=== PATIENT | female | born 1950 | race Caucasian/White ===

== ENCOUNTER 2025-10-12 15:57 | Emergency (ER) | payer MEDICARE, OTHER, SELFPAY ==
--- NOTE | ~2025-10-12 | CT_ITS ---
CLINICAL HISTORY: Nonfocal AMS CT Head Without Contrast: Comparison: None Findings: Cortical sulci are prominent. Small 2-3 mm remote lacunar infarcts are present involving the bilateral caudate nuclei and bilateral internal capsule No shift in midline structures No intraparenchymal bleeding or abnormal extra axial blood fluid collections Normal pituitary size Clear paranasal sinuses Unremarkable orbital structures No depressed fractures Impression: Bilateral basal ganglia small remote lacunar infarcts, no signs abnormalities. This document has been electronically signed by: Keny Rubio MD on 10/12/2025 17:39:19
[2025-10-12 16:12] VITALS: BP 140/80; BP 172/104; PULSE 70; PULSE 85; RESP 16; TEMP 36.6; O2SAT 95; BMI 24.0
--- NOTE | 2025-10-12 16:29 | ED_ITS ---
HPI - General Adult General Chief complaint: General Medical Stated complaint: Increased confusion Time Seen by Provider: 10/12/25 16:07 History of Present Illness ED Provider: parth HPI narrative: [age] female who had a adult protective Services calm possibly at the behest of a neighbor who was concerned about the patient. Apparently she lives alone she had to me appears demented and does not contribute at all to the history. She perseverates and continues to ask for ?where's my boyfriend?. She is not responsive to other medical questions. Related Data Home Medications ?Medication ?Instructions ?Recorded ?Confirmed No Known Home Meds 10/13/25 10/13/25 Allergies Allergy/AdvReac Type Severity Reaction Status Date / Time No Known Allergies Allergy Verified 10/12/25 16:16 PMF Social History Social History Smoked in Last 30 Days: No Use of substances other than those prescribed or required for medical reasons: No Advance Directives: No Advance Directives Information Provided: Yes Physical Exam ED Exam Exam: EXAM: Gen: Alert, awake, well appearing, well hydrated. Pleasantly demented Head: Atraumatic Eyes: Anicteric, Normal conjunctiva. ENT: Moist mucosa, no pallor. ? Neck: Supple. Skin: ?No observable rash or bruising on exposed or examined skin Respiratory: Breathing comfortably, No distress.Clear to auscultation bilaterally, symmetric chest expansion, No wheeze, rales, ronchi. Cardiovascular: Regular rate and rhythm. No murmurs or rub. Well perfused periphery, warm extremities. No edema. ? Abdominal: No focal tenderness. Soft, no objective distension. No palpable masses or obvious organomegaly. ?No guarding, no rebound tenderness or other peritoneal findings. : No flank tenderness. Neuro: Alert. Gross movement of all extremities intact. ? Psych: Calm. Cooperative. Demented. Perseverating on her boyfriend MSK: No grossly visible deformity. Vital signs: See flowsheet Vital Signs: Vital Signs - 24 hr 10/13/25 16:19 10/14/25 06:00 Temperature 98.5 F 97.8 F Pulse Rate 80 78 Respiratory Rate 16 Blood Pressure 174/91 H 135/73 Pulse Oximetry 98 96 Oxygen Delivery Method Room Air Room Air BMI result Body Mass Index 24.0 Course Reevaluation(s) Reevaluation #1: Time: 06:24 Date: 10/13/25 Provider: Dean Cohen MD Patient in physician observation for psychiatric evaluation.? No acute events reported overnight. No current complaints. VS stable.? Patient is in bed search status/pending CARE team evaluation. Will continue to monitor. Reevaluation #2: Time: 06:01 Date: 10/14/25 Provider: Dean Cohen MD Patient in physician observation for psychiatric evaluation.? No acute events reported overnight. No current complaints. VS stable.? Patient is in bed search status/pending CARE team evaluation. Will continue to monitor. Reevaluation #3: Patient was seen by psychiatric correctional case records supervisor, patient was cleared for discharge correctional case records supervisor arranged appropriate follow-up and safety of the pain. At this time we will discontinue the ED obs 10/14/2025 1105 () Time: 11:04 Medical Decision Making Medical Decision Making MDM Narrative: Medical Decision Making: [age] female possibly with dementia neighbor concerned about her safety at home alone. There was no signs of injury or acute medical emergency. CT shows remote lacunar infarcts unlikely related to the patient's current presentation at this time. There was no focal deficits. There was no fever or hemodynamic instability. Preliminary Favored Differential Diagnosis: [ ] among additional considered etiologies Testing Interpreted Independently: ?See below for details Radiology or Lab testing Results Reviewed: ?See below for details Consults: ?See below for details Independent Historians/External Chart Reviews: ?See below for details Social Determinants of Health Impacting MDM/Planning: ?See below for details Lab Data 10/12/25 16:34 10/12/25 16:34 Labs: Lab Results 10/12/25 10/14/25 Range/Units 16:34 06:32 WBC 10.7 (4.8-10.8) X10*3/uL RBC 5.33 (4.20-5.50) X10*6/uL Hgb 14.8 (12.0-16.0) g/dl Hct 44.5 (37.0-47.0) % MCV 83.5 (80.0-98.0) fL MCH 27.8 (27.0-33.0) pg MCHC 33.3 (31.0-35.0) g/dl RDW 14.8 (11.0-16.0) % Plt Count 261 (160-400) X10*3/uL MPV 8.4 L (9.4-12.3) fL Immature Gran % (Auto) 0.2 (0.0-0.4) % Neut % (Auto) 74.2 H (45-73) % Lymph % (Auto) 17.5 L (20-40) % [place] % (Auto) 6.7 (2-11) % Eos % (Auto) 0.7 (0-4) % Baso % (Auto) 0.7 (0-2) % Lymph # (Auto) 1.9 (1.2-4.9) X10*3/uL [place] # (Auto) 0.7 (0.1-1.2) X10*3/uL Eos # (Auto) 0.1 (0.0-0.4) X10*3/uL Baso # (Auto) 0.1 (0.0-0.2) X10*3/uL Abs Immat Gran (auto) 0.02 (0.00-0.03) X10*3/uL Absolute Neuts (auto) 7.9 (2.0-8.3) x10*3/uL Absolute Nucleated RBC 0.000 (0.0-0.012) X10*3/uL Nucleated RBC % (auto) 0.0 (0.0-0.2) /100WBC Sodium 142 (135-145) mmol/L Potassium 3.3 (3.3-5.1) mmol/L Chloride 102 (96-108) mmol/L Carbon Dioxide 28 (22-29) mmol/L Anion Gap 15 (12-20) BUN 20 H (9-16) mg/dL Creatinine 1.07 (0.5-1.4) mg/dL Estim Creat Clear Calc 40.4 Estimated GFR 50 Random Glucose 94 (60-115) mg/dL Calcium 9.7 (8.4-10.2) mg/dL Magnesium 1.7 (1.6-2.6) mg/dL Total Bilirubin 0.5 (0.0-1.0) mg/dL AST 30 (5-31) U/L ALT 15 (0-31) U/L Alkaline Phosphatase 81 (39-117) U/L Total Protein 7.3 (6.5-8.0) g/dL Albumin 4.5 (3.5-5.0) g/dL TSH 1.14 (0.32-4.0) uIU/mL Urine Color Dark Yellow Urine Appearance Clear Urine pH 5.0 (5.0-9.0) Ur Specific [place] 1.025 (1.005-1.025) Urine Protein 30 (1+) H (Neg-Trace) mg/dL Urine Glucose (UA) Negative (Negative) mg/dL Urine Ketones 15 (Negative) mg/dL Urine Blood Negative (Negative) Urine Nitrite Negative (Negative) Ur Leukocyte Esterase Negative (Negative) Urine RBC 0-2 (0-2) /HPF Urine WBC 0-5 (0-5) /HPF Ur Squamous Epith Cells 3-5 (0-2) /HPF Urine Bacteria Trace (None Seen) Hyaline Casts 3-5 (0-2) /LPF Urine Opiates Screen Not Detected (Not Detect) Ur Buprenorphine Scrn Not Detected (Not Detect) ng/mL Ur Oxycodone Screen Not Detected (Not Detect) ng/mL Urine Methadone Screen Not Detected (Not Detect) ng/mL Urine Fentanyl Screen Not Detected (Not Detect) Ur Barbiturates Screen Not Detected (Not Detect) Ur Phencyclidine Scrn Not Detected (Not Detect) Ur Amphetamines Screen Not Detected (Not Detect) U Benzodiazepines Scrn Not Detected (Not Detect) Urine Cocaine Screen Not Detected (Not Detect) U Marijuana (THC) Screen Not Detected (Not Detect) Ethyl Alcohol < 10 mg/dL Discharge Plan Discharge Clinical Impression: Major neurocognitive disorder Patient Disposition: Home, Self-Care Additional Instructions: Follow-up with your primary care physician return to the emergency room if worse Prescriptions: No Action No Known Home Meds Print Language: Bulgarian
[2025-10-12 16:46] LABS: MANUAL DIFF FLAG NO
[2025-10-12 16:49] LABS: Hematocrit 44.5 % (37.0-47.0); Hemoglobin 14.8 g/dl (12.0-16.0); Imm Gran Abs Auto 0.02 X10*3/uL (0.00-0.03); Imm Gran Pct Auto 0.2 % (0.0-0.4); Lymphocytes Absolute Auto 1.9 X10*3/uL (1.2-4.9); Mean Corpuscular HGB Conc 33.3 g/dl (31.0-35.0); Mean Corpuscular Hemoglobin 27.8 pg (27.0-33.0); Mean Corpuscular Volume 83.5 fL (80.0-98.0); NRBC Abs Auto 0.000 X10*3/uL (0.0-0.012); NRBC Pct Auto 0.0 /100WBC (0.0-0.2); Platelet Count 261 X10*3/uL (160-400); Red Blood Count 5.33 X10*6/uL (4.20-5.50); White Blood Count 10.7 X10*3/uL (4.8-10.8)
[2025-10-12 17:16] LABS: Alanine Aminotransferase 15 U/L (0-31); Albumin Level 4.5 g/dL (3.5-5.0); Alkaline Phosphatase 81 U/L (39-117); Anion Gap 15 (12-20); Aspartate Amino Transferase 30 U/L (5-31); Blood Urea Nitrogen 20 mg/dL (9-16); Calcium 9.7 mg/dL (8.4-10.2); Carbon Dioxide 28 mmol/L (22-29); Chloride 102 mmol/L (96-108); Creatinine Clr Calc Pharmacy 40.4; Estimated Glomerular Filt Rate 50; Magnesium 1.7 mg/dL (1.6-2.6); Potassium 3.3 mmol/L (3.3-5.1); Sodium 142 mmol/L (135-145); Total Protein 7.3 g/dL (6.5-8.0)
--- NOTE | 2025-10-12 17:17 | PC.NURSE ---
Pt presents to ED via EMS from home, per EMS, elder services called for pt to be transported due to multiple reports filled. Limited info, pt is very poor historian and EMS had limited story. Pt lives alone but has home health aids come to help her. A neighbor on scene reported he is worried about her and taking care of herself. Pt is alert and oriented to person only, very confused, denying any physical complaints. No SOB, CP, pain, N/V/D. Breathing even and unlabored. No signs of trauma or distress. Pt unsure why she is here, wants to leave. Pt changed over and elopement band placed. Pt got up multiple times and tried to leave room. meters superintendent aware and 1:1 sitter now with pt. Pt keeps talking about her boyfriend , per EMS pt refers to the neighbor as her boyfriend.
[2025-10-12 17:28] LABS: Thyroid Stimulating Hormone 1.14 uIU/mL (0.32-4.0)
[2025-10-12 17:37] VITALS: BP 151/84; PULSE 71; RESP 16; O2SAT 96
--- OUTSIDE RECORDS SUMMARY | 2025-10-12 19:07 | XMS_ITS | Encounter Summary ---
Author Organization [facility] Address [address] [place] [address] [place] [phone] Phone Care Team Providers Care Assembler Truck Trailer Name Role Phone Huang Tsai DO Primary Care Provider [phone] Encounter Details Date Type Department Care Team (Late st Contact Info) Description 10/22/2024 Procedure Pass [facility], Ct Scan - [facility] [address] [place] [address] Social History Tobacco Use Types Packs/Day Years Used Date Smoking Tobacco: Never Smokeless Tobacco: Never Alcohol Use Standard Drinks/Week Comments Yes 0 (1 standard drink = 0.6 oz pur e alcohol) 1 per month Education Answer Date Recorded Are you interested in more education? Not on ananth e 03/07/2023 Are you concerned about learning? Not on file 03/07/2023 No 03/07/2023 No 03/07/2023 Digital Access Answer Date Recorded No 04/05/2023 No 04/05/2023 Reliable internet access at home? Not on file 04/05/2023 Device with a working camera? Not on file Comments Unknown Sex and Gender Information Value Date Recorded Sex Assigned at Female 10/22/2024 9:38 AM EST Legal Sex Female 10:00 PM EDT Gender Identity Female 10/22/2024 9:38 AM EST Sexual Orientation Straight 01/23/2025 2: 41 PM EDT documented as of this encounter Functional Status * Calculated C-SSRS Risk Score (Lifetime/Recent) Answer Date of Assessment Author No Risk Indicated 10/22/2024 9:38 AM EST Isabella Vick, GEOVANNI * Amelia Suicide Severity Rating Scale (Screener/Recent Self-Report) Question Answer Date of Assessment Author 1. Wish to be (Past 1 Month) No 024 9:38 AM Isabella Simmons, GEOVANNI 2. Non-Specific Active Suici bladimir Thoughts (Past 1 Month) No 10/22/2024 9:38 AM Isabella Simmons , GEOVANNI 6. Suicidal Behavior (Lifetime) No 9:38 AM Isabella Simmons, GEOVANNI documented as of this encounter Plan of Treatment Upcoming Encounters Date Type Department Care Team (Late st Contact Info) Description 11/07/2025 11:00 AM EST Office Visit [facility] [address] [place] [address] Huang Tsai, DO [address] [place] [address] [email or web address] 12/14/2025 1:30 PM EST Social Work [facility] [address] [place] [address] Carlton Smith, ASP NET DEVELOPER [address], [address] 2026 3:00 PM EDT Office Visit [facility] Geriatrics [address] [place] [address] Stephon Baig, [address] [place] [address] 03/24/2026 1:30 PM EDT Office Visit [facility] [address] [place] [address] Chetan Min MD [address] [place] [address], [address] [place] [address] documented as of this encounter Visit Diagnoses Not on filedocumented in this encounter Care Teams Assembler Truck Trailer Relationship Specialty Start Date End Date Huang Tsai DO [address] [place] [address] [email or web address] PCP - General 04/14/18 documented as of this encounter Additional Source Comments The information contained in this document represents components of the legal health record. It is not the complete legal health record.[facility]
--- OUTSIDE RECORDS SUMMARY | 2025-10-12 19:07 | XMS_ITS | Encounter Summary ---
Author Organization [facility] Address [address] [place] [phone] Phone Care Team Providers Care Information Security Engineer Name Role Phone Huang Tsai DO Primary Care Provider Encounter Details Date Type Department Care Team (Late st Contact Info) Description 04/14/2018 Procedure Pass [facility] Admitting Dept Virtual Department [address] [place] [address] Social History Tobacco Use Types Packs/Day Years Used Date Smoking Tobacco: Never Smokeless Tobacco: Never Alcohol Use Standard Drinks/Week Comments Yes 0 (1 standard drink = 0.6 oz pur e alcohol) 1 per month Comments Unknown Sex and Gender Information Value Date Recorded Sex Assigned at Female 10/22/2024 9:38 AM EST Legal Sex Female 10:00 PM EDT Gender Identity Female 10/22/2024 9:38 AM EST Sexual Orientation Straight 01/23/2025 2: 41 PM EDT documented as of this encounter Plan of Treatment Upcoming Encounters Date Type Department Care Team (Late st Contact Info) Description 11/07/2025 11:00 AM EST Office Visit [facility] [address] [place] [address] Huang Tsai DO [address] [place] [address] [email or web address] 12/14/2025 1:30 PM EST Social Work [facility] [address] [place] [id number] Carlton Smith, HEALTH SAFETY COORDINATOR [address] [facility]. [address] [place], [address] 2026 3:00 PM EDT Office Visit [facility] [address] [place] [address] Stephon Baig DO [address] [place] [address] 03/24/2026 1:30 PM EDT Office Visit [facility] [address] [place] [address] Chetan Min MD [address] [facility] [address] [place] [address] documented as of this encounter Visit Diagnoses Not on filedocumented in this encounter Care Teams Information Security Engineer Relationship Specialty Start Date End Date Huang Tsai DO [address] [place] [address] PCP - General 04/14/18 documented as of this encounter Additional Source Comments The information contained in this document represents components of the legal health record. It is not the complete legal health record.[facility]
--- OUTSIDE RECORDS SUMMARY | 2025-10-12 19:07 | XMS_ITS | Clinical Summary ---
Author Organization [facility] Address [address] [place] [address] [place] [phone] Phone Care Team Providers Care Wooden Furniture Polisher Name Role Phone Martita Tsai DO Primary Care Provider [phone] Allergies Active Allergy Reactions Criticality Noted Date Comments Benzethonium Chloride Other (See Comments) 02/2021 Codeine Nausea and/or Vomiting 04/07/2018 Latex Rash Low 04/07/2018 Morphine Nausea and/or Vomiting 04/07/2018 Other 09/02/2022 Other reaction(s): CAUSES SINUSITIS, SEASONAL Other Reaction(s): CAUSES SINUSITIS, SEASONAL Other reaction(s): AFTER BEING ONFOR AWHILE STUCK TO SKIN DIFFICULT TO GET OFF REDNESS RASH Other Reaction(s): AFTER BEING ONFOR AWHILE STUCK TO SKIN DIFFICULT TO GET OFF REDNESS RASH Medications losartan (COZAAR) 50 MG tabletIndication s:hypertension Take 50 mg by mouth daily. Indications: hypertension Active venlafaxine (EFFEXOR) 37.5 MG tablet Take 37.5 mg by mouth 2 (two) times a day. Active omeprazole (PRILOSEC) 20 MG capsuleIndicatio ns:gastroesophag eal reflux disease Take 20 mg by mouth daily. Indications: gastroesophageal reflux disease Active therapeutic multivitamin tablet Take 1 tablet by mouth daily. Active calcium citrate (CALCITRATE) 950 mg (200 mg elemental) tablet Take 1 tablet by mouth daily. Active cholecalciferol (VITAMIN D3) 25 MCG (1,000 unit) tablet Take 1,000 Units by mouth daily. Active Active Problems Problem Noted Date Diagnosed Date Hypokalemia 09/01/2025 Lower abdominal pain 09/01/2025 Chronic diarrhea 08/30/2025 Sensorineural hearing loss 08/30/2025 Osteoporosis, postmenopausal 08/30/2025 Nontoxic thyroid nodule 08/30/2025 Mild cognitive disorder 08/30/2025 Migraine without aura and responsive to treatmen t 08/30/2025 GERD (gastroesophageal reflux disease) Drug-induced polyneuropathy 08/30/2025 BRCA2 gene mutation positive in female Encounter to establish care with new doctor 08/11 Triple negative breast cancer 08/30/2025 Overview (08/30/2025): Right breast cancer treated at [facility] oncologist Dr. Sánchez Generalized anxiety disorder 01/20/2025 Malignant neoplasm of ovary 11/17/2024 Assessment & Plan (08/30/2025 5:06 PM EDT): Followed by Dr. Sánchez Hyperparathyroidism 11/17/2024 Breast cancer, right 11/17/2024 Chronic kidney disease, stage 3a 08/13/2021 Overview (08/30/2025): Per chart review meets GFR criteria Essential hypertension 08/13/2021 Hyperplastic polyp of large intestine 04/14/2018 Overview (08/30/2025): Dr Garcia Encounters Date Type Department Care Team Description 10/03/2025 11:00 AM EST Office Visit [address] [place] [address] Maritta Tsai DO Chronic diarrhea (Primary Dx); Chronic kidney disease, stage 3a; Hypokalemia; Lower abdominal pain; Lack of social support; Malignant neoplasm of ovary, unspecified laterality; Triple negative breast cancer; Essential hypertension; Hyperparathyroidism; Drug-induced polyneuropathy; Mild cognitive disorder; Generalized anxiety disorder; Nontoxic thyroid nodule; Acquired hypothyroidism 10/03/2025 [address] [place] [address] Maggie Ragsdale LICSW Care Coordination 09/12/2025 Telephone [facility] - ([facility] Primary Care - [address] [address] Shelli Ko LICSW Care Coordination 09/09/2025 Telephone [facility] - ([facility] Primary Care - [address] [address] [place] Shelli Nielsen LICSW Care Coordination 09/07/2025 Telephone [facility] - ([facility] Primary Care - [address] [address] [facility] Shelli Nielsen LICSW 09/02/[address] [place] [address] Rupal Osuna RN Results & Recommendations 09/01/2025 12:27 PM EDT - 09/01/2025 11:59 PM EDT Hospital Encounter [facility] [address] [place] [address] Martita Tsai, DO Discharge Disposition: Home or Self Care 09/01/2025 11:30 AM EDT Office Visit [address] [place] [address] Martita Tsai, Encounter to establish care with new doctor (Primary Dx); Chronic diarrhea; Chronic kidney disease, stage 3a; Malignant neoplasm of ovary, unspecified laterality; Triple negative breast cancer; Hypokalemia; Lower abdominal pain; Lack of social support 08/31/2025 2:35 AM EDT - 08/31/2025 2:36 AM EDT Emergency [facility] [address] [place] [address] Discharge Disposition: Left Without Being Seen 08/30/[address] [place] [address] Martita Tsai, Triage (Red + abdominal pain + diarrhea + 1 year) from Last 3 Months Immunizations Immunization Administration Dates Next Due COVID-19 (Pre-09/01) Moderna Vaccine, mRNA, PF 03/18/2022,10/09/2021,01/27/2021 COVID-19 Pfizer Comirnaty Vaccine 12+ 08/28/2023 COVID-19, Unspecified Formulation 07/29/2022 Hepatitis B, unspecified formulation 05/03/2008, 12/01/2007 INFLUENZA, SPLIT VIRUS, TRIV ALENT W/ PRESERVATIVE IM 08/28/2023 Influenza High-Dose Trivalen t Preservative Free IM 10/03/2025 Pneumococcal conjugate PCV20 05/07/2022 Tdap 05/07/2022 Family History Medical History Relation Comments Diabetes Mother Relation Status Comments Mother Social History Tobacco Use Types Packs/Day Years Used Date Smoking Tobacco: Never Smokeless Tobacco: Never Alcohol Use Standard Drinks/Week Comments Not Currently 0 (1 standard drink = 0.6 oz pur e alcohol) 1 per month Education Answer Date Recorded Are you interested in more education? Not on ananth e 03/07/2023 Are you concerned about learning? Not on file 03/07/2023 No 03/07/2023 No 03/07/2023 Food Answer Date Recorded Within the past 6 months we worried whether our food would run out before we got money to buy more. Never True 08/30/2025 Within the past 6 months the food we bought just didn't last and we didn't have enough money to get more. Never True Residential Stability Answer Date Recor ded What is your housing situation today? I have jackson sing 08/30/2025 How many times have you move d in the past 12 months? Zero (I did not move) 08/30/2025 Paying for Meds Answer Date Recorded Do you have trouble paying for medicines? No 08/30/2025 Paying Utility Bills Answer Date Record ed Do you have trouble paying your heating or elect ricity bill? No 08/30/2025 Transportation Answer Date Recorded Has the lack of transportati on kept you from medical appointments or from getting medications? No 08/30/2025 Digital Access Answer Date Recorded No 08/30/2025 Yes 08/30/2025 Do you have reliable internet access at home? Ye s 08/30/2025 Do you have a device (e.g., phone, tablet, computer) with a working camera? Yes 08/30/2025 Intimate Partner Violence Answer Date R ecorded Are you denied basic needs s uch as food, clothing, or medical care? No 08/30/2025 In the past 12 months have y ou been in a relationship with a person who hurts, threatens, or tries to control you? No 08/30/2025 Are you denied basic needs s uch as food, clothing, or medical care? No 08/30/2025 In the past 12 months have y ou been in a relationship with a person who hurts, threatens, or tries to control you? No 08/30/2025 Comments Unknown Sex and Gender Information Value Date Recorded Sex Assigned at Female 10/22/2024 9:38 AM EST Legal Sex Female 10:00 PM EDT Gender Identity Female 10/22/2024 9:38 AM EST Sexual Orientation Straight 01/23/2025 2: 41 PM EDT Last Filed Vital Signs Vital Sign Reading Time Taken Comments Blood Pressure 128/64 10/03/2025 10:50 AM EST Pulse 87 10/03/2025 10:50 AM EST Temperature 36.2 C (97.1 F) 10/03/2025 10:50 AM EST Respiratory Rate 18 08/30/2025 11:27 PM EDT Oxygen Saturation 97% 10/03/2025 10:50 AM EST Inhaled Oxygen Concentration - - Weight 58.6 kg (129 lb 3.2 oz) 10/03/2025 10:50 AM EST Height 160 cm (5' 2.99 ) 10/03/2025 10:50 AM EST Body Mass Index 22.89 10/03/2025 10:50 AM EST Plan of Treatment Upcoming Encounters Date Type Department Care Team (Late st Contact Info) Description 11/07/2025 11:00 AM EST Office Visit [facility] Family Medicine [address] [place] [address] Martita Tsai DO [address] [place] [address] [email or web address] 12/14/2025 1:30 PM EST Social Work [facility] Behavioral Health [address] [place] [address] Carlton Smith, DIRECTOR GLOBAL INTELLIGENCE 15 [facility]. [address] [place], [address] 2026 3:00 PM EDT Office Visit [facility] Geriatrics [address] [place] [address] Stephon Baig, [address] [place] [address] [email or web address] 03/24/2026 1:30 PM EDT Office Visit [facility] [address] [place] [address] Chetan Min MD [address] [facility], [address] [place] [address] [email or web address] Health Maintenance Due Date Last Done Comments HEPATITIS C SCREENING 01/15/1970 ZOSTER VACCINES (1 of 2) 01/15/1971 MAMMOGRAM 1992 FIT TEST 01/15/1997 FOBT 01/15/1997 SIGMOIDOSCOPY 01/15/1997 VIRTUAL COLONOSCOPY 01/15/1997 OSTEOPOROSIS SCREENING INITIAL (ONE-TIME) 01/15/2017 COVID-19 VACCINE ( season) 2025 08/28/2023, 07/29/2022, 07/29/2022, Additional history exists BLOOD PRESSURE 04/02/2026 10/03/2025 CREATININE LEVEL 09/01/2026 09/01/2025, , 02/17/2025, Additional history exists POTASSIUM LEVEL 09/01/2026 09/01/2025, 1011/2024, 02/17/2025, Additional history exists DEPRESSION SCREENING 10/03/2026 10/03/2025 RSV VACCINE (1 - 1-dose 75+ series) 01/15/2027 COLOGUARD 07/27/2027 07/27/2024 COLORECTAL CANCER SCREENING 07/27/2027 LIPID PANEL 09/13/2027 09/13/2022 COLONOSCOPY 04/14/2028 04/14/2018 Adult Td,Tdap Booster 05/07/2032 05/07/2022 PNEUMOCOCCAL VACCINES (50+ years) Completed 05/07/2022 INFLUENZA VACCINE Completed 10/03/2025, 08/28/2023 SMOKING STATUS SCREENING (Once After 26 Yrs) Completed 10/03/2025 HEPATITIS A VACCINES Aged Out No long er eligible based on patient's age to complete this topic HIB VACCINES Aged Out No longer eligi ble based on patient's age to complete this topic MENINGOCOCCAL VACCINES (ACWY) Aged Out No longer eligible based on patient's age to complete this topic MENINGOCOCCAL VACCINES (B) Aged Out N o longer eligible based on patient's age to complete this topic Medical Devices Not on file Procedures Procedure Name Priority Date/Time Associated Diagnosis Comments BASIC METABOLIC PANEL (BMP) Routine 09/01/2025 12:56 PM EDT Hypokalemia MAGNESIUM STAT 08/30/2025 11:38 PM EDT LIPASE STAT 08/30/2025 11:38 PM EDT LFTS (HEPATIC PANEL) STAT 08/30/2025 11:38 PM EDT BASIC METABOLIC PANEL (BMP) STAT 08/30/2025 11:38 PM EDT CBC AND DIFFERENTIAL STAT 08/30/2025 11:38 PM EDT ENDOSCOPY, COLON 04/14/2018 11:0 2 AM EDT from Last 3 Months or Most Recently Relevant to Health Maintenance Results * (ABNORMAL) Basic metabolic panel (09/01/2025 12:56 PM EDT) Only the most recent of2 resultswithin the time period is included. SODIUM 144 133 - 146 mmol/L [facility] CHLORIDE 103 96 - 108 mmol/L [facility] POTASSIUM 3.6 3.3 - 5.1 mmol/L [facility] CO2 29 21 - 35 mmol/L [facility] BUN 24(H) 6 - 19 mg/dL [facility] CREATININE 1.00 0.5 - 1.5 mg/dL [facility] GLUCOSE 98 70 - 99 mg/dL [facility] CALCIUM 9.8 8.4 - 10.3 mg/dL [facility] EGFR 59(L) >59 mL/min/1.7 3m2 [facility] Comment:Estimated glomerular filtration rate calculated using the CKD-EPI refit equation. ANION GAP 16 10 - 20 mmol/L [facility] Blood 09/01/2025 12:5 6 PM EDT 09/01/2025 1:01 PM EDT us Martita Tsai DO LAB BLOOD BKR ORDERABLES Final Result Performing Organization Address City/[facility]/ZIP Co de Phone Number [address] [address] * LFTs (hepatic panel) (08/30/2025 11:38 PM EDT) ALKALINE PHOSPHATASE 92 39 - 117 U/L [facility] TOTAL BILIRUBIN 0.3 0.0 - 1.2 mg/dL [facility] DIRECT BILIRUBIN 0.1 0.0 - 0.2 mg/dL [facility] Bilirubin (Indirect) NOT CALCULATED 0 - 1.5 mg/dL [facility] AST 22 0 - 37 U/L [facility] ALT 14 0 - 40 U/L [facility] TOTAL PROTEIN 7.5 6.5 - 8.0 g/dL [facility] ALBUMIN 4.4 3.9 - 4.8 g/dL [facility] GLOBULIN 3.1 1 - 4.8 g/dL [facility] A/G Ratio 1.42 1.00 - 4.80 RATIO [facility] Blood 08/30/2025 11:3 8 PM EDT 08/30/2025 11:46 PM EDT us Stephen Lou MD LAB BLOOD BKR ORDERABLES Final Result Performing Organization Address City/[facility]/ZIP Co de Phone Number [address] [address] * (ABNORMAL) CBC and differential (08/30/2025 11:38 PM EDT) WBC 11.57(H) 4.00 - 11.00 K/uL [facility] RBC 5.51(H) 4.00 - 5.20 M/uL [facility] HGB 15.1 12.0 - 16.0 g/dL [facility] HCT 45.7 36.0 - 46.0 % [facility] PLT 296 150 - 450 K/uL [facility] MCV 82.9 80.0 - 100.0 fL [facility] MCH 27.4 27.0 - 31.0 pg [facility] MCHC 33.0 32.0 - 36.0 g/dL [facility] RDW 15.0(H) 11.5 - 14.5 % [facility] MPV 8.7 8.4 - 12.0 fL [facility] NRBC 0.00 0.00 /100 WBCs [facility] ABSOLUTE NRBC 0.00 0.00 K/uL [facility] DIFF METHOD Auto [facility] NEUTS 70.9 48.0 - 76.0 % [facility] LYMPHS 19.9 18.0 - 41.0 % [facility] MONOS 6.8 4.0 - 11.0 % [facility] EOS 1.4 0.0 - 5.0 % [facility] BASOS 0.7 0.0 - 1.5 % [facility] Granulocytes, immature (%) 0.3 0.0 - 0.9 % [facility] ABSOLUTE NEUTS 8.21(H) 1.92 - 7.60 K/uL [facility] ABSOLUTE LYMPHS 2.30 0.72 - 4.10 K/uL [facility] ABSOLUTE MONOS 0.79 0.16 - 1.10 K/uL [facility] ABSOLUTE EOS 0.16 0.00 - 0.50 K/uL [facility] ABSOLUTE BASOS 0.08 0.00 - 0.15 K/uL [facility] Granulocytes, immature 0.03 0.00 - 0.09 K/uL [facility] Blood 08/30/2025 11:3 8 PM EDT 08/30/2025 11:46 PM EDT us Stephen Lou MD LAB BLOOD BKR ORDERABLES Final Result Performing Organization Address City/[facility]/ZIP Co de Phone Number [address] [address] * Magnesium (08/30/2025 11:38 PM EDT) MAGNESIUM 1.6 1.6 - 2.6 mg/dL [facility] 08/30/2025 11:3 8 PM EDT 08/30/2025 11:46 PM EDT us Stephen Lou MD LAB BLOOD BKR ORDERABLES Final Result Performing Organization Address [facility] Co de Phone Number [address] [address] * (ABNORMAL) Lipase (08/30/2025 11:38 PM EDT) LIPASE 71(H) 16 - 63 U/L [facility] Blood 08/30/2025 11:3 8 PM EDT 08/30/2025 11:46 PM EDT us Stephen Lou MD LAB BLOOD BKR ORDERABLES Final Result Performing Organization Address [facility]/ZIP Co de Phone Number [address] [address] * ENDOSCOPY, COLON (04/14/2018 11:02 AM EDT) Narrative Transcriptions Carlton Gracia MD - 04/14/2018 11:02 AM EDT Patient Name: Christin Weber Attending MD:: CARLTON GARCIA MD Procedure Date: 04/14/2018 11:02 AM Date of : 1950 Age: 68 Admit Type: Outpatient Gender: Female Room: [place] [address] Referring MD: MARTITA TSAI DO Exam Type: Colonoscopy Indications: Screening for colorectal malignant neoplasm, Screeningin patient at increased risk: Family history of 1st-degree relative with colorectal cancer Medications: Monitored Anesthesia Care Procedure: Informed consent was obtained from the patient after discussion of the indications, limitations,alternatives, benefits, and risks of the procedure. Risksspecifically discussed include but are not limited to medication reactions, missed lesions, bleeding, perforation, orthe need for emergent surgery. Throughout the procedure, the patient's blood pressure, pulse, end-tidal CO2, and oxygen saturations were monitored continuously. The Olympus adult variable colonoscope [id number] #[id number] was introduced through the anus and advanced to the cecum, identified by the appendiceal orifice. The colonoscopywas performed without difficulty. The patient tolerated the procedure well. The quality of the bowel preparationwas excellent. Complications: No immediate complications. Estimated blood loss:None. Findings: The perianal and digital rectal examinations werenormal. A 5 mm polyp was found in the descending colon. Thepolyp was sessile. The polyp was removed with a hot snare. Resection and retrieval were complete. The rectum, recto-sigmoid colon, sigmoid colon, splenic flexure, transverse colon, hepatic flexure, ascending colon, cecum, appendiceal orifice, ileocecal valve,rectum (on retroflexion) and ascending colon (on retroflexion) appeared normal. Impression: - One 5 mm polyp in the descending colon, removed witha hot snare. Resected and retrieved. - The rectum, recto-sigmoid colon, sigmoid colon,splenic flexure, transverse colon, hepatic flexure, ascending colon, cecum, appendiceal orifice and ileocecal valveare normal. Recommendation: - Discharge patient to home. - Resume previous diet. - Continue present medications. - Await pathology results. - Repeat colonoscopy in 5 years for surveillance. - I will send you pathology results by letter. If youdo not get results in 3 weeks telephone my office. CARLTON GARCIA MD 04/14/2018 11:17:35 AM This report has been signed electronically. Number of Addenda: 0 Note Initiated On: 04/14/2018 11:02 AM Procedure Code(s): --- Professional --- 60168, Colonoscopy, flexible; with removal of tumor(s), polyp(s), or other lesion(s) by snare technique --- Technical --- 04880, Colonoscopy, flexible; with removal of tumor(s), polyp(s), or other lesion(s) by snare technique Diagnosis Code(s): --- Professional --- Z12.11, Encounter for screening for malignant neoplasm of colon Z80.0, Family history of malignant neoplasm of digestive organs D12.4, Benign neoplasm of descending colon --- Technical --- Z12.11, Encounter for screening for malignant neoplasm of colon Z80.0, Family history of malignant neoplasm of digestive organs D12.4, Benign neoplasm of descending colon CPT copyright 2016 [employer]. All rights reserved. The codes documented in this report are preliminary and upon mushroom farmer reviewmay be revised to meet current compliance requirements. [address] [place] [address] Martita Tsai DO GI PROCEDURE ORDERABLES Final Result from Last 3 Months or Most Recently Relevant to Health Maintenance Insurance [employer] ENHANCE SUPPLEMENT [facility] Address: [address] [place] [id number] MEDICARE PART A & B [employer] ENHANCE SUPPLEMENT [facility] Address: [facility] [id number] [place] [id number] MEDICARE PART A & B [address] [place] [address] [place] [address] [employer] ENHANCE SUPPLEMENT [facility] Address: [facility] [id number] [place] [id number] MEDICARE PART A & B [address] [place] [address] [employer] ENHANCE SUPPLEMENT [facility] Address: [address] [place] [id number] MEDICARE PART A & B [employer] ENHANCE SUPPLEMENT [facility] Address: [address] [place] [id number] MEDICARE PART A & B [address] [place] [address] [facility] MEDICARE ENHANCE SUPPLEMENT MEDICARE PART A & B Care Teams Wooden Furniture Polisher Relationship Specialty Start Date End Date Martita Tsai DO [address] [place] [id number] [email or web address] PCP - General 04/14/18 Additional Source Comments The information contained in this document represents components of the legal health record. It is not the complete legal health record.[facility]
--- OUTSIDE RECORDS SUMMARY | 2025-10-12 19:07 | XMS_ITS | Encounter Summary ---
Author Organization [facility] Address [address] [place] [address] Phone Care Team Providers Care Staff Field Engineer Name Role Phone Huang Tsai DO Primary Care Provider [phone] Encounter Details Date Type Department Care Team (Late st Contact Info) Description 01/23/2025 Procedure Pass [facility], Ct Scan - [facility] [address] [place] [address] Social History Tobacco Use Types Packs/Day Years [...] with a working camera? Not on file Intimate Partner Violence Answer Date R ecorded Are you denied basic needs s uch as food, clothing, or medical care? No 01/23/2025 In the past 12 months have y ou been in a relationship with a person who hurts, threatens, or tries to control you? No 01/23/2025 Are you denied basic needs s uch as food, clothing, or medical care? No 01/23/2025 In the past 12 months have y ou been in a relationship with a person who hurts, threatens, or tries to control you? No 01/23/2025 Comments Unknown Sex and Gender Information Value Date Recorded Sex Assigned at Female 10/22/2024 9:38 AM EST Legal Sex Female 10:00 PM EDT Gender Identity Female 10/22/2024 9:38 AM EST Sexual Orientation Straight 01/23/2025 2: 41 PM EDT documented as of this encounter Functional Status * Calculated C-SSRS Risk Score (Lifetime/Recent) Answer Date of Assessment Author No Risk Indicated 01/23/2025 2:36 PM EDT Donna Campos, GEOVANNI * Pratt Suicide Severity Rating Scale (Screener/Recent Self-Report) Question Answer Date of Assessment Author 1. Wish to be (Past 1 Month) No 2:36 PM EDT Donna Bonilla, GEOVANNI 2. Non-Specific Active Suici bladimir Thoughts (Past 1 Month) No 01/23/2025 2:36 PM EDT Donna Bonilla, GEOVANNI 6. Suicidal Behavior (Lifetime) No 2:36 PM EDT Donna Bonilla RN documented as of this encounter Plan of Treatment Upcoming Encounters Date Type Department Care Team (Late st Contact Info) Description 11/07/2025 11:00 AM EST Office Visit [facility] Family Medicine [address] [place] [address] Huang Tsai, DO [address] [place] [email or web address] 12/14/2025 1:30 PM EST Social Work [facility]al [facility] [address] [place] [address] Carlton Smith, VERO [address] [address] 2026 3:00 PM EDT Office Visit [facility] Geriatrics [address] [place] [address] Stephon Baig, DO [address] [place] [address] [email or web address] 03/24/2026 1:30 PM EDT Office Visit [facility] [address] [place] [address] Chetan Min MD [address] [facility], [address] [place] [address] documented as of this encounter Visit Diagnoses Not on filedocumented in this encounter Care Teams Staff Field Engineer Relationship Specialty Start Date End Date Huang Tsai DO [address] [place] [phone] [email or web address] PCP - General 04/14/18 documented as of this encounter Additional Source Comments The information contained in this document represents components of the legal health record. It is not the complete legal health record.[facility]
[2025-10-12 19:27] VITALS: BP 172/94; PULSE 87; RESP 16; TEMP 36.7; O2SAT 96
[2025-10-12 20:08] VITALS: BP 150/72
--- NOTE | 2025-10-12 21:34 | MHC.CM.ED ---
Received CM consult from Dr. Felix. Medical record reviewed. EMS paperwork not available at this time. Pt has not been to [facility]. According to medical records, elder services called for transport to ED. Multiple reports have been filed regarding this patient. According to triage note, neighbor is concerned that patient cannot care for herself. There are no specifics in the medical record. No medical history. There is a question of dementia. CM attempted to meet with patient. She is in BH4. She is sleeping with the blankets over her head. Psych consult pending for capacity. CM will hold further assessments until seen by psych.
--- NOTE | 2025-10-13 00:40 | PC.NURSE ---
Assumed care at 1845. Required frequent orientation to place & time. No HS scheduled medications. No PRN's utilized. [address]. Awaiting psych consult.
[2025-10-13 06:41] VITALS: BP 119/68; PULSE 94; RESP 17; TEMP 36.6; O2SAT 100
--- NOTE | 2025-10-13 07:53 | PC.NURSE ---
Assumed care, report received. Pt is awake, calm and pacing, she continues to ask when she is leaving and is exit seeking. She eats her breakfast and wanders the unit.
--- NOTE | 2025-10-13 12:06 | P.CNPS_ITS ---
History of Present Illness Date of Service: 10/13/2025 Chief Complaint: Increased confusion Reason for Consult: capacity Discussed with referring provider: Yes Sources of Information: patient interviewed, chart reviewed and crisis/core team assessment reviewed HPI Narrative: Ms. Weber is a 75 year-old woman who was brought via EMS due to concerns in terms of her ability to care for herself. It appears protective services is involved. No particular details as to concerns were given but will obtain further collateral information. Psychiatry was asked to assess pt's capacity to make medical decisions/cognitive function as it pertains to her ability to care for herself. Pertinent labs completed in the ED include: CBC without leukocytosis/leukopenia, anemia. CMP without electrolyte abnormality, BUN 20, Cr 1.07 creatinine clearance 40.4. BAL negative. 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 Pt seen in ED. As soon as this provider enters the room, she asks are you the person? this aligner typewriter asked to elaborate, she states are you part of this? She points at phone number she has written for Fernie. When asked what brought you here, she states I was downtown [place] ... some paused as she seems to struggle to find words, then she says I can't talk. She then adds I was doing varies things online, it kept shifting and shifting, you know? so I had several things going on at home, 2 people told me I have to do this things because I was not kosher. they drove me to these places that are there. When asked if she knows where [place] think of the name. When asked about the month, she reports I don't know because I was dealing with this (pointing at phone number of Fernie). She is also no able to tell the year. When asked feeling depressed or anxious, she reports feeling anxious. She denies SI/HI. No signs of psychosis or delusional content. Pt tells this aligner typewriter she has been in this room referring to room in ED for 3 years Diagnostics Vital Signs (24Hr): Vital Signs - 24 hr 10/12/25 16:12 10/12/25 17:37 10/12/25 19:27 Temperature 98 F 98.0 F Pulse Rate 85 71 87 Respiratory Rate 16 16 16 Blood Pressure 172/104 H 151/84 H 172/94 H Pulse Oximetry 95 96 96 Oxygen Delivery Method Room Air Room Air Room Air 10/12/25 20:08 10/13/25 06:41 Temperature 97.8 F Pulse Rate 94 Respiratory Rate 17 Blood Pressure 150/72 H 119/68 Pulse Oximetry 100 Oxygen Delivery Method Room Air BMI result Body Mass Index 24.0 Labs 10/12/25 16:34 10/12/25 16:34 Labs: Laboratory Results - last 48 hr 10/12/25 16:34 WBC 10.7 RBC 5.33 Hgb 14.8 Hct 44.5 MCV 83.5 MCH 27.8 MCHC 33.3 RDW 14.8 Plt Count 261 MPV 8.4 L Immature Gran % (Auto) 0.2 Neut % (Auto) 74.2 H Lymph % (Auto) 17.5 L [place] % (Auto) 6.7 Eos % (Auto) 0.7 Baso % (Auto) 0.7 Lymph # (Auto) 1.9 [place] # (Auto) 0.7 Eos # (Auto) 0.1 Baso # (Auto) 0.1 Abs Immat Gran (auto) 0.02 Absolute Neuts (auto) 7.9 Absolute Nucleated RBC 0.000 Nucleated RBC % (auto) 0.0 Sodium 142 Potassium 3.3 Chloride 102 Carbon Dioxide 28 Anion Gap 15 BUN 20 H Creatinine 1.07 Estim Creat Clear Calc 40.4 Estimated GFR 50 Random Glucose 94 Calcium 9.7 Magnesium 1.7 Total Bilirubin 0.5 AST 30 ALT 15 Alkaline Phosphatase 81 Total Protein 7.3 Albumin 4.5 TSH 1.14 Ethyl Alcohol < 10 Mental Status Exam Mental Status Exam Narrative: Appearance: wearing hospital gown, fair hygiene, in NAD Behavior: cooperative Psychomotor: no agitation or retardation noted Speech: with significant expressive aphasia, spontaneous TP: expressive aphasia, disorganized and non sensical TC: wanting this aligner typewriter to call Fernie Mood: good Affect: anxious SI: none HI: none VH/AH: no overt signs Delusions: no overt signs, but confabulating Memory/cog: alert, not oriented to place, month nor year, severe ability to retain new information. very advanced cognitive impairments. Medications Allergies Allergies Allergy/AdvReac Type Severity Reaction Status Date / Time No Known Allergies Allergy Verified 10/12/25 16:16 Assessment & Plan Assessment & Plan (1) Major neurocognitive disorder: Status: Acute Code(s): F03.90 - Unspecified dementia, unspecified severity, without behavioral disturbance, psychotic disturbance, mood disturbance, and anxiety Plan Ms. Weber is a 75 year-old woman who was brought via EMS due to concerns neighbors shared in terms of her ability to care for herself. Pt presents with oriented to self. She is not able to tell where she is, month or events leading to this admission. She also presents with severe expressive aphasia making it difficult to communicate. Mrs. Weber had severe cognitive/memory impairments which would required her to have 24hr supervision. ED attending and case management director to determine dispo that seems reasonably in terms of assuring that she is not on her own. PLAN 1. She does not have capacity to make medical decisions. Severe cognitive and memory impairments which suggest she would required 24/7 supervision to be safe in the community. Pending collateral from protective services which seems to be involved and friend (hoping case management director can obtain this). Total time managing care of this patient today ____ minutes.
--- NOTE | 2025-10-13 12:56 | MHC.CM.ED ---
Addendum entered by Aida Delacruz 10/13/25 13:58: Received notification from Georgina GALARZA that patient's friend, Fernie, had visited earlier. Fernie left his telephone number. T/W spoke with Fernie via telephone at [phone]. Fernie is a neighbor and friend. Fernie states he will move in with patient in order to keep her in the community. Fernie states patient has family that is older but no family locally that is able to help her. Patient's friend, Rgeina, has been helping patient as well. T/W spoke with Regina (Vandana Mcghee). Regina states she is a friend but does not live with patient. Patient is friends with Regina's and that is how they became friends. Regina is a band bias machine operator but is not patient's band bias machine operator. Regina has known patient for years. Patient has never been . Patient does not have kids. Patient has a sister in her 80's that has been hospitalized recently. Patient's memory has definitely been worsening over the past year. Regina has been to some doctor's appointments with patient. Regina states patient has Medicare and a supplement. Regina has tried to obtain [employer]. However, patient receives a pension from [employer] and social [employer] and does not qualify for [employer]. Regina has tried to get meals on wheels but patient does not like them. Regina has been trying to work with [employer] to get more help in the home but has not been successful. Regina feels it would be a great idea to have Fernie assist patient. Original Note: Patient remains in ER. Per Rosaline, sound editor, patient does not have capacity to make her own decisions. Waiting to hear from [facility] to see if patient has a HCP on file with them. Left a voicemail for Surjit Sung at [employer] requesting return telephone call. Continue to monitor for d/c needs.
--- NOTE | 2025-10-13 13:49 | PHA.MEDREC ---
Addendum entered by Julian Kebede PharmD 10/13/25 14:58: reviewed Original Note: Pharmacy Consult ? Medication Reconciliation Pharmacy reviewed med rec done by nursing. Claims match.
[2025-10-13 16:19] VITALS: BP 174/91; PULSE 80; RESP 16; TEMP 36.9; O2SAT 98
--- NOTE | 2025-10-14 01:01 | PC.NURSE ---
pt sleeping, no sign of distress.
--- NOTE | 2025-10-14 01:50 | PC.NURSE ---
oob to bathroom, pt steady on her feet.
--- NOTE | 2025-10-14 04:19 | PC.NURSE ---
pt sleeping at this time.
[2025-10-14 06:00] VITALS: BP 135/73; PULSE 78; TEMP 36.6; O2SAT 96
[2025-10-14 06:40] LABS: Appearance Urine Clear; Glucose Urine UA Negative (Negative); PH 5.0 (5.0-9.0); Specific Gravity - Urine 1.025 (1.005-1.025); UMIC TRIGGER UACC YES
[2025-10-14 06:50] LABS: Cannabinoid Screen Urine Not Detected (Not Detect)
--- NOTE | 2025-10-14 07:46 | PC.NURSE ---
patient awake/alert to person/place, ambulatory with steady gait, rr equal/non labored, denies pain/discomfort, flight risk signage intact, pt awating ltc through case management, plan of care ongoing.
--- NOTE | 2025-10-14 10:41 | MHC.CM.ED ---
Addendum entered by Milly Mujica 10/14/25 10:49: Received call from pt's friend Fernie who states both him and pt's other friend, Regina will assume care responsibility for pt in the community. They are aware of pt's open case w/[facility] and of pt's decision making impairment. Met w/pt to discuss dc plans: pt states Fernie and Regina are marvelous friends who have been helping her prior to her arrival. She is very pleased that Fernie will stay with her in the home. Discussed w/ED MD: pt is safe to d/c to home w 02/06 care provided by Fernie and Regina. Fernie to transport Original Note: Pt holding in the ED BH after being brought in for confusion. Psych eval determined no decision making capacity. Call placed to [facility]y at [phone] ext [phone]: message left. Calls placed to [facility] and [facility]: messages left inquiring on any HCP on file. Pt with no hx at [facility]. Pt has friends in the community who are willing to assist pt including residing with her to provide care. Message left w/friend Fernie requesting a call back
[2025-10-14 12:11] VITALS: BP 138/88; PULSE 76; RESP 16; TEMP 36.2; O2SAT 96
== END 2025-10-14 12:13 | disposition home or self-care (01) ==
PROVIDERS: Emergency Provider Emergency Medicine
DX: F03.90 Unspecified dementia, unspecified severity, without behavioral disturbance, psychotic disturbance, mood disturbance, and anxiety (principal); R41.82 Altered mental status, unspecified; Z79.899 Other long term (current) drug therapy; Z51.81 Encounter for therapeutic drug level monitoring
CPT/HCPCS: 36415; 70450; 80053; 80307; 81001; 83735; 84443; 85025; 99284; 99285

== ENCOUNTER → 2025-10-12 16:25 | Outpatient (BNV) | payer MEDICARE, OTHER, SELFPAY | PROVIDERS: Emergency Provider Emergency Medicine; Visit Provider Radiology Diagnostic Radiology | DX: I63.81 Other cerebral infarction due to occlusion or stenosis of small artery (principal) | CPT/HCPCS: 70450 ==

== ENCOUNTER → 2025-10-12 17:42 | Outpatient (BNV) | payer MEDICARE, OTHER, SELFPAY | PROVIDERS: Emergency Provider Emergency Medicine; Visit Provider Social Worker | DX: F03.90 Unspecified dementia, unspecified severity, without behavioral disturbance, psychotic disturbance, mood disturbance, and anxiety (principal) | CPT/HCPCS: 99285 ==